=== PATIENT | female | born 1945 | race African-American/Black ===

== ENCOUNTER 2020-07-10 10:18 | Inpatient (IN) | payer OTHER ==
[~2020-07-10] VITALS: Ht 167.6 cm; Wt 104.3 kg
[2020-07-10 10:36] LABS: BASOPHILS % 0.4 % (0.0-2.0); EOSINOPHILS % 0.3 % (0.0-5.0); HEMATOCRIT. 32.6 % (36.0-48.0); HEMOGLOBIN. 10.6 g/dL (12.0-16.0); LYMPHOCYTES % 31.6 % (20.0-50.0); MEAN CORPUSCULAR HEMOGLOBIN 31.2 pg (28.0-32.0); MEAN CORPUSCULAR VOLUME 95.5 fL (81.0-99.0); MEAN PLATELET VOLUME 7.6 fl (7.4-10.4); MONOCYTES % 8.5 % (2.0-8.0); NEUTROPHILS % 59.2 % (40.0-76.0); PLATELET 200 x1000/uL (130-400); RED BLOOD CELL COUNT 3.41 mill/uL (4.2-5.4); RED CELL DISTRIBUTION WIDTH 14.3 % (11.6-14.6)
[2020-07-10] MEDS ORDERED: AZITHROMYCIN 500 MG in DEXT 5% WATER 250 ML IV STA (10:47)
[2020-07-10 10:48] LABS: CHLORIDE 104 mEq/L (98-107)
[2020-07-10 10:56] LABS: D-DIMER 10.82 mg/L FEU (<0.50); INR 1.1; PROTHROMBIN TIME 11.4 sec (9.6-11.0)
[2020-07-10 11:00] LABS: CREATINE KINASE 48 IU/L (26-192)
[2020-07-10] MEDS ORDERED: CEFTRIAXONE 1 G PREMIX 50 ML IV ONE (11:00)
[2020-07-10] MEDS ORDERED: DEXAMETHASONE 10 MG/ML VIAL IV ONE (11:00)
[2020-07-10 12:52] LABS: BG BASE EXCESS -1.2 mmol/L (-2.0-2.0); BG CARBOXYHEMOGLOBIN 0.3 % (0.5-1.5); BG DEOXYHEMOGLOBIN 5.7 % (0.0-5.0); BG FRACTION INSPIRED OXYGEN 100; BG HCO3 ACT 24.6 mmol/L (22.0-26.0); BG METHEMOGLOBIN 0.3 % (0.0-1.5); BG OXYGEN SATURATION 94.3 % (92.0-98.5); BG OXYHEMOGLOBIN 93.7 % (94.0-97.0); BG PCO2 45.5 mmHg (35.0-45.0); BG PH 7.351 (7.350-7.450); BG PO2 77.1 mmHg (75.0-100.0); BG SAMPLE SITE LEFT BRACHIAL; BG TOTAL HEMOGLOBIN 12.8 g/dL (12.0-18.0); BG VENT MODE MASK - NRB
[2020-07-10] MEDS ORDERED: DEXTROSE 50% WATER 50ML SYRINGE IV PRN (14:15)
[2020-07-10] MEDS ORDERED: ONDANSETRON HCL 4MG/2ML INJ IV PRN (14:15)
[2020-07-10] MEDS ORDERED: AZITHROMYCIN 500 MG TABLET PO NR (14:15)
[2020-07-10] MEDS ORDERED: INSULIN GLARGINE UD 100 UNITS/ML SYR SUBCUT NR (15:00)
[2020-07-10] MEDS ORDERED: ATOR40TA70 MT (15:13)
[2020-07-10 15:17] VITALS: BP 140/92
[2020-07-10] MEDS ORDERED: ALBUTEROL 6.7GM HFA INHALER ORI PRN (15:45)
[2020-07-10 16:00] VITALS: BP 140/92
[2020-07-10] MEDS ORDERED: POTASSIUM CHLORIDE 20MEQ TABLET SR PO NR (16:15)
[2020-07-10] MEDS: BLOOD SUGAR DIAGNOSTIC STRIP TEST SCH ×2 (16:54→21:00)
[2020-07-10] MEDS: INSULIN LISPRO 100 UNITS/ML SUBCUT SCH ×2 (17:48→23:21)
[2020-07-10 20:00] VITALS: BP 125/80
[2020-07-10] MEDS ORDERED: INSULIN GLARGINE UD 100 UNITS/ML SYR SUBCUT SCH (22:00)
[2020-07-10] MEDS: ENOXAPARIN 30MG/0.3ML SYR SUBCUT SCH (23:20)
[2020-07-11] VITALS: BP 117/66
[2020-07-11] MEDS: INSULIN GLARGINE UD 100 UNITS/ML SYR SUBCUT SCH ×3 (03:15→21:56)
[2020-07-11 04:00] VITALS: BP 120/75
[2020-07-11] MEDS: BLOOD SUGAR DIAGNOSTIC STRIP TEST SCH ×4 (07:40→21:23)
[2020-07-11 08:00] VITALS: BP 139/75
[2020-07-11] MEDS ORDERED: CEFTRIAXONE 1 G PREMIX 50 ML IV SCH (09:00)
[2020-07-11] MEDS ORDERED: DEXAMETHASONE 4MG TABLET PO NR (09:00)
[2020-07-11] MEDS: DEXAMETHASONE 10 MG/ML VIAL IV SCH (09:03)
[2020-07-11] MEDS: INSULIN LISPRO 100 UNITS/ML SUBCUT SCH ×4 (09:05→21:55)
[2020-07-11] MEDS: ENOXAPARIN 30MG/0.3ML SYR SUBCUT SCH ×2 (09:08→21:55)
[2020-07-11] MEDS: CEFTRIAXONE 1,000 MG in DEXTROSE 5% WATER 50 ML IV SCH (09:08)
[2020-07-11 12:00] VITALS: BP 119/61
[2020-07-11 16:00] VITALS: BP 142/77
[2020-07-11 20:00] VITALS: BP 145/73
[2020-07-11 20:56] LABS: CHLORIDE 103 mEq/L (98-107)
[2020-07-11 20:57] LABS: BASOPHILS % 0.4 % (0.0-2.0); HEMATOCRIT. 38.4 % (36.0-48.0); HEMOGLOBIN. 12.4 g/dL (12.0-16.0); LYMPHOCYTES % 15.5 % (20.0-50.0); MEAN CORPUSCULAR HEMOGLOBIN 30.1 pg (28.0-32.0); MEAN CORPUSCULAR VOLUME 93.7 fL (81.0-99.0); MEAN PLATELET VOLUME 7.8 fl (7.4-10.4); MONOCYTES % 7.8 % (2.0-8.0); NEUTROPHILS % 76.3 % (40.0-76.0); PLATELET 305 x1000/uL (130-400)
[2020-07-12] VITALS: BP 138/71
[2020-07-12 04:00] VITALS: BP 143/63
[2020-07-12] MEDS: BLOOD SUGAR DIAGNOSTIC STRIP TEST SCH ×4 (06:27→21:21)
[2020-07-12 08:00] VITALS: BP 146/70
[2020-07-12] MEDS: INSULIN LISPRO 100 UNITS/ML SUBCUT SCH ×4 (08:10→20:52)
[2020-07-12] MEDS: ENOXAPARIN 30MG/0.3ML SYR SUBCUT SCH ×2 (09:01→20:50)
[2020-07-12] MEDS: DEXAMETHASONE 10 MG/ML VIAL IV SCH (09:01)
[2020-07-12] MEDS: CEFTRIAXONE 1,000 MG in DEXTROSE 5% WATER 50 ML IV SCH (09:03)
[2020-07-12] MEDS: INSULIN GLARGINE UD 100 UNITS/ML SYR SUBCUT SCH (09:11)
[2020-07-12 12:00] VITALS: BP 149/62
[2020-07-12 15:41] LABS: BG BASE EXCESS 1.3 mmol/L (-2.0-2.0); BG CARBOXYHEMOGLOBIN 0.3 % (0.5-1.5); BG DEOXYHEMOGLOBIN 7.3 % (0.0-5.0); BG HCO3 ACT 25.1 mmol/L (22.0-26.0); BG METHEMOGLOBIN 0.3 % (0.0-1.5); BG OXYGEN SATURATION 92.7 % (92.0-98.5); BG OXYHEMOGLOBIN 92.1 % (94.0-97.0); BG PCO2 37.1 mmHg (35.0-45.0); BG PH 7.448 (7.350-7.450); BG PO2 61.4 mmHg (75.0-100.0); BG SAMPLE SITE RIGHT RADIAL; BG TOTAL HEMOGLOBIN 12.8 g/dL (12.0-18.0); BG VENT MODE ROOM AIR
[2020-07-12 16:00] VITALS: BP 141/57
[2020-07-12 20:00] VITALS: BP 137/61
[2020-07-12] MEDS: ACETAMINOPHEN 325MG TABLET PO PRN (21:23)
[2020-07-12] MEDS ORDERED: INSULIN GLARGINE UD 100 UNITS/ML SYR SUBCUT SCH (22:00)
[2020-07-13] VITALS: BP 108/60
[2020-07-13 04:00] VITALS: BP 119/57
[2020-07-13] MEDS: ACETAMINOPHEN 325MG TABLET PO PRN (04:05)
[2020-07-13] MEDS: BLOOD SUGAR DIAGNOSTIC STRIP TEST SCH ×4 (06:14→21:00)
[2020-07-13] MEDS: INSULIN LISPRO 100 UNITS/ML SUBCUT SCH ×4 (06:42→21:51)
[2020-07-13 08:00] VITALS: BP 133/58
[2020-07-13] MEDS: CEFTRIAXONE 1,000 MG in DEXTROSE 5% WATER 50 ML IV SCH (08:31)
[2020-07-13] MEDS: DEXAMETHASONE 10 MG/ML VIAL IV SCH (08:31)
[2020-07-13] MEDS: INSULIN GLARGINE UD 100 UNITS/ML SYR SUBCUT SCH ×2 (10:00→21:54)
[2020-07-13] MEDS ORDERED: HYDROCODONE/ACETAMINOPHEN 5/325MG TABLET PO PRN (10:30)
[2020-07-13] MEDS: ENOXAPARIN 30MG/0.3ML SYR SUBCUT SCH ×2 (10:40→21:59)
[2020-07-13 12:00] VITALS: BP 140/59
[2020-07-13] MEDS ORDERED: ALBU6.7H9 ORI (13:41)
[2020-07-13 16:00] VITALS: BP 126/86
[2020-07-13 20:00] VITALS: BP 147/69
[2020-07-14] VITALS: BP 138/56
[2020-07-14] MEDS: ACETAMINOPHEN 325MG TABLET PO PRN ×2 (01:16→02:16)
[2020-07-14 04:00] VITALS: BP 127/67
[2020-07-14] MEDS: BLOOD SUGAR DIAGNOSTIC STRIP TEST SCH ×4 (07:40→20:53)
[2020-07-14 08:00] VITALS: BP 126/72
[2020-07-14] MEDS: INSULIN LISPRO 100 UNITS/ML SUBCUT SCH ×4 (08:10→21:07)
[2020-07-14] MEDS: ENOXAPARIN 30MG/0.3ML SYR SUBCUT SCH ×2 (08:47→20:50)
[2020-07-14] MEDS: CEFTRIAXONE 1,000 MG in DEXTROSE 5% WATER 50 ML IV SCH (09:36)
[2020-07-14] MEDS: DEXAMETHASONE 10 MG/ML VIAL IV SCH (09:36)
[2020-07-14] MEDS: INSULIN GLARGINE UD 100 UNITS/ML SYR SUBCUT SCH ×2 (10:00→21:08)
[2020-07-14 12:00] VITALS: BP 141/75
[2020-07-14 16:00] VITALS: BP 141/75
[2020-07-14 20:00] VITALS: BP 107/58
[2020-07-15] VITALS: BP 138/72
[2020-07-15 04:00] VITALS: BP 112/52
[2020-07-15] MEDS: BLOOD SUGAR DIAGNOSTIC STRIP TEST SCH ×2 (07:40→12:34)
[2020-07-15] MEDS: INSULIN LISPRO 100 UNITS/ML SUBCUT SCH ×2 (07:59→12:41)
[2020-07-15 08:00] VITALS: BP 129/50
[2020-07-15] MEDS: ENOXAPARIN 30MG/0.3ML SYR SUBCUT SCH (08:38)
[2020-07-15] MEDS: CEFTRIAXONE 1,000 MG in DEXTROSE 5% WATER 50 ML IV SCH (09:00)
[2020-07-15] MEDS: DEXAMETHASONE 10 MG/ML VIAL IV SCH (09:01)
[2020-07-15] MEDS: INSULIN GLARGINE UD 100 UNITS/ML SYR SUBCUT SCH (10:27)
[2020-07-15 12:00] VITALS: BP 136/88
[2020-07-15 16:00] VITALS: BP 118/56
== END 2020-07-15 16:52 | disposition home health service (06) | DRG 871 ==
LOC: ER 10:37 → 7WST 11:25 → EDBEDREQ 11:30 → EDBEDREQTM 11:30 → EDBEDREQSVC 12:04 → ENRESERV 12:07 → EDBEDREQSVC 12:07
PROVIDERS: ADMIT Internal Medicine; ATTEND Internal Medicine
DX: A41.89 Other specified sepsis (principal); U07.1 COVID-19; J96.01 Acute respiratory failure with hypoxia; J12.82 Pneumonia due to coronavirus disease 2019; E44.1 Mild protein-calorie malnutrition; E87.2 Acidosis; Z68.41 Body mass index [BMI] 40.0-44.9, adult; D64.9 Anemia, unspecified; E11.9 Type 2 diabetes mellitus without complications; E66.9 Obesity, unspecified; E78.5 Hyperlipidemia, unspecified; E87.6 Hypokalemia; I10 Essential (primary) hypertension; G90.8 Other disorders of autonomic nervous system; R74.01 Elevation of levels of liver transaminase levels; Z79.899 Other long term (current) drug therapy; D72.819 Decreased white blood cell count, unspecified
CPT/HCPCS: 36415; 36600; 71045; 80048; 80053; 82375; 82550; 82728; 82805; 82962; 83036; 83605; 83615; 83880; 84145; 84484; 85025; 85379; 85384; 86140; 87426; 93005; 96365; 99291; J0456; J0696; J1100; J1650; J1815; J7060; U0003; A4315